=== PATIENT | female | born 1965 | race Caucasian/White ===

== ENCOUNTER 2024-03-09 22:00 | Inpatient (IN) | payer BC ==
[~2024-03-09] VITALS: Ht 160 cm; Wt 91.0 kg
[2024-03-09 15:35] LABS: BASOPHILS # (AUTO) 0.05 K/uL (0.00-0.20); BASOPHILS % (AUTO) 0.6 % (0.0-5.0); EOSINOPHILS # (AUTO) 0.09 K/uL (0.00-0.70); HEMATOCRIT 44.2 % (36-48); IMMATURE GRANULOCYTE ABSOLUTE 0.02 K/uL (0-1); LYMPHOCYTES # (AUTO) 2.7 K/uL (1.0-4.8); LYMPHOCYTES % (AUTO) 31.1 % (21.0-51.0); MEAN CORPUSCULAR HEMOGLOBIN 31.3 pg (27.0-33.0); MEAN CORPUSCULAR HGB CONC 31.2 g/dL (32.0-36.0); MEAN CORPUSCULAR VOLUME 100.2 fL (79-99); MONOCYTES # (AUTO) 0.6 K/uL (0.1-1.0); MONOCYTES % (AUTO) 6.6 % (3.0-13.0); NEUTROPHILS # (AUTO) 5.3 K/uL (1.8-7.7); NEUTROPHILS % (AUTO) 60.5 % (40.0-77.0); PLATELET COUNT (AUTO) 213 K/uL (130-400); RED BLOOD CELL COUNT(AUTO) 4.41 MIL/uL (4.00-5.50); RED CELL DISTRIBUTION WIDTH 13.9 % (11.0-15.5); WHITE BLOOD COUNT (AUTO) 8.8 K/uL (4.8-10.8)
[2024-03-09 15:50] LABS: INR <= 0.93 (0.85-1.15)
[2024-03-09 15:51] LABS: PARTIAL THROMBOPLASTIN TIME 25.9 SEC (26.3-35.5)
[2024-03-09 15:56] LABS: ALBUMIN 3.4 g/dL (3.5-5.0); BILIRUBIN,TOTAL 0.2 mg/dL (0.2-1.0); CREATININE 1.2 mg/dL (0.5-1.0); POTASSIUM 3.5 mmol/L (3.5-5.1); TOTAL PROTEIN, SERUM 7.8 g/dL (6.0-8.3)
[2024-03-09 16:38] VITALS: BP 144/78; PULSE 95; RESP 18; TEMP 97.3
[~2024-03-09 22:00] MED LIST: ALPR1TAB7 PO; DICY20TA3 PO; DULO60CA64 PO; ESTROGEN TP; FOLIC ACID PO; HYOS-14 PO; OMEP40CA21 PO; PROGESTERONE PO; PROM25TA7 PO; TOPI-97 PO
[2024-03-13] VITALS (24 sets, daily range): BP systolic 123–153; BP diastolic 65–84; PULSE 78–101; RESP 15–18; TEMP 97.5–98.1
[2024-03-13] MEDS: LACTATED RINGERS 1000ML 1,000 ML IV ONE (07:11)
[2024-03-13] MEDS ORDERED: proPOFol 10 MG/ML 20ML VIAL IV ONE (07:24)
[2024-03-13] MEDS ORDERED: rocuRONium bROMide 10MG/1ML 5ML VL ONE ×3 (07:24→14:35)
[2024-03-13] MEDS ORDERED: MIDAZOLAM HCL 1 MG/ML 2ML VIAL ONE (07:24)
[2024-03-13] MEDS ORDERED: ondanSETRON 4MG INJ ONE (07:24)
[2024-03-13] MEDS ORDERED: FENTanyl CITRate PF 50 MCG/1 ML 2ML VIAL ONE ×3 (07:24→11:26)
[2024-03-13] MEDS ORDERED: LIDOCAINE PF 100MG/5ML (2%) SYRINGE 5ML ONE (07:27)
[2024-03-13] MEDS ORDERED: phenylEPHRINE HCL 10 MG/ML 1ML VIAL IV ONE (07:30)
[2024-03-13] MEDS: acetaMINOPHEN 100 ML ONE (07:37)
[2024-03-13] MEDS: INDOCYANINE GREEN 25 MG VIAL IJ ONE (07:48)
[2024-03-13] MEDS: MEROPENEM 1 GM VIAL ONE (08:40)
[2024-03-13] MEDS: LIDOCAINE HCL 1% 10 ML VIAL ONE (08:52)
[2024-03-13] MEDS: BUPIvacaine/PF 0.5% 30ML VIAL ONE (08:52)
[2024-03-13] MEDS: EPINEPHrine PF 1MG (1:1,000) 1 MG/ML AMP ONE (08:52)
[2024-03-13] MEDS: LIDOCAINE HCL 1% 20 ML VIAL ONE (08:52)
[2024-03-13] MEDS ORDERED: MEPERIDINE-PF 25 MG/ML SYG ONE (13:42)
[2024-03-13] MEDS: SUGAMMADEX SODIUM 200 MG/2 ML VIAL IV ONE (14:43)
[2024-03-13] MEDS: FENTanyl CITRate PF 50 MCG/1 ML 2ML VIAL ONE (15:51)
[2024-03-13] MEDS: MEPERIDINE-PF 25 MG/ML SYG ONE (16:09)
[2024-03-13] MEDS: acetaMINOPHEN 325 MG TAB PO SCH (16:30)
[2024-03-13] MEDS: LACTATED RINGERS 1000ML 1,000 ML IV SCH (16:30)
[2024-03-13] MEDS ORDERED: HYDROcodone/APAP 5/325 1 TAB TABLET PO ONE (19:00)
[2024-03-13] MEDS ORDERED: ketOROlac 30MG VIAL (30MG/ML) IVP ONE (19:00)
[2024-03-13] MEDS: hydroMORPHone 0.5 MG SYG (0.5MG/0.5ML) IVP ONE (19:16)
[2024-03-13] MEDS ORDERED: PoTASSium chloRIDE 20MEQ/100ML 100 ML IV PRN (20:30)
[2024-03-13] MEDS ORDERED: MAGNESIUM 2GM PREMIX 50ML 50 ML IV PRN (20:30)
[2024-03-13] MEDS ORDERED: PoTASSium chl 10% ELIXIR 20MEQ 20 MEQ/15 ML UDCUP PO PRN (20:30)
[2024-03-13] MEDS: FAMOTIDINE 20MG VIAL IV SCH (20:34)
[2024-03-13] MEDS: GABAPENTIN 300 MG CAPSULE PO SCH (20:35)
[2024-03-13] MEDS: MEPERIDINE-PF 25 MG/ML SYG IVP PRN (22:27)
[2024-03-14] MEDS: hydroMORPHone 0.5 MG SYG (0.5MG/0.5ML) IVP ONE (01:46)
[2024-03-14 04:00] VITALS: BP 128/65; PULSE 97; RESP 20; TEMP 97.9
[2024-03-14 04:38] LABS: BASOPHILS # (AUTO) 0.04 K/uL (0.00-0.20); BASOPHILS % (AUTO) 0.3 % (0.0-5.0); EOSINOPHILS # (AUTO) 0.01 K/uL (0.00-0.70); EOSINOPHILS % (AUTO) 0.1 % (0.0-8.0); HEMATOCRIT 40.7 % (36-48); IMMATURE GRANULOCYTE ABSOLUTE 0.04 K/uL (0-1); LYMPHOCYTES # (AUTO) 2.5 K/uL (1.0-4.8); LYMPHOCYTES % (AUTO) 16.8 % (21.0-51.0); MEAN CORPUSCULAR HGB CONC 31.9 g/dL (32.0-36.0); MEAN CORPUSCULAR VOLUME 96.9 fL (79-99); MONOCYTES # (AUTO) 1.6 K/uL (0.1-1.0); MONOCYTES % (AUTO) 11.1 % (3.0-13.0); NEUTROPHILS # (AUTO) 10.5 K/uL (1.8-7.7); NEUTROPHILS % (AUTO) 71.4 % (40.0-77.0); PLATELET COUNT (AUTO) 242 K/uL (130-400); RED CELL DISTRIBUTION WIDTH 14.2 % (11.0-15.5); WHITE BLOOD COUNT (AUTO) 14.7 K/uL (4.8-10.8)
[2024-03-14 04:48] LABS: HEMOGLOBIN A1C 5.1 % (4.0-6.0)
[2024-03-14 05:19] LABS: CREATININE 1.1 mg/dL (0.5-1.0); POTASSIUM 3.6 mmol/L (3.5-5.1); THYROID STIMULATING HORMONE 0.95 uIU/mL (0.36-3.74)
[2024-03-14] MEDS: PoTASSium chloRIDE 20MEQ ER 20 MEQ ERTAB PO PRN (05:32)
[2024-03-14 08:00] VITALS: BP 110/57; PULSE 95; RESP 18; TEMP 98.2; O2SAT 99
[2024-03-14] MEDS: ENOXAPARIN SODIUM 40 MG/0.4 ML SYRINGE SQ SCH (08:46)
[2024-03-14 12:00] VITALS: BP 153/83; PULSE 84; RESP 18; TEMP 97.8
[2024-03-14] MEDS: HYDROcodone/APAP 5/325 1 TAB TABLET PO PRN (14:01)
[2024-03-14 16:00] VITALS: BP 122/68; PULSE 97; RESP 18; TEMP 99.3
[2024-03-14 19:25] VITALS: BP 151/80; PULSE 87; RESP 20; TEMP 98.7; O2SAT 97
[2024-03-14] MEDS: hydroMORPHone 0.5 MG SYG (0.5MG/0.5ML) IVP PRN (19:46)
[2024-03-14 23:08] VITALS: RESP 20
[2024-03-15] VITALS (9 sets, daily range): BP systolic 120–140; BP diastolic 57–85; PULSE 75–99; RESP 16–21; TEMP 97.8–98.4; O2SAT 94–98
[2024-03-15 04:18] LABS: BASOPHILS # (AUTO) 0.03 K/uL (0.00-0.20); BASOPHILS % (AUTO) 0.4 % (0.0-5.0); EOSINOPHILS # (AUTO) 0.12 K/uL (0.00-0.70); EOSINOPHILS % (AUTO) 1.4 % (0.0-8.0); HEMATOCRIT 38.6 % (36-48); IMMATURE GRANULOCYTE ABSOLUTE 0.04 K/uL (0-1); LYMPHOCYTES # (AUTO) 1.9 K/uL (1.0-4.8); LYMPHOCYTES % (AUTO) 21.6 % (21.0-51.0); MEAN CORPUSCULAR HEMOGLOBIN 31.5 pg (27.0-33.0); MEAN CORPUSCULAR HGB CONC 31.6 g/dL (32.0-36.0); MEAN CORPUSCULAR VOLUME 99.7 fL (79-99); MONOCYTES # (AUTO) 0.9 K/uL (0.1-1.0); NEUTROPHILS # (AUTO) 5.6 K/uL (1.8-7.7); NEUTROPHILS % (AUTO) 65.1 % (40.0-77.0); PLATELET COUNT (AUTO) 192 K/uL (130-400); RED BLOOD CELL COUNT(AUTO) 3.87 MIL/uL (4.00-5.50); RED CELL DISTRIBUTION WIDTH 14.5 % (11.0-15.5); WHITE BLOOD COUNT (AUTO) 8.6 K/uL (4.8-10.8)
[2024-03-15 04:23] LABS: CREATININE 1.1 mg/dL (0.5-1.0); POTASSIUM 3.5 mmol/L (3.5-5.1)
[2024-03-15] MEDS ORDERED: LACTATED RINGERS 1000ML IV SCH (08:30)
[2024-03-15] MEDS: ondanSETRON 4MG INJ IVP PRN (10:59)
[2024-03-15] MEDS: DICYCLOMINE HCL 20 MG TAB PO PRN (20:21)
[2024-03-16] VITALS (7 sets, daily range): BP systolic 119–156; BP diastolic 65–95; PULSE 72–96; RESP 16–20; TEMP 97.8–98.9; O2SAT 94–97
[2024-03-16] MEDS: LACTATED RINGERS 1000ML 1,000 ML IV SCH (01:14)
[2024-03-16 05:28] LABS: BASOPHILS # (AUTO) 0.02 K/uL (0.00-0.20); BASOPHILS % (AUTO) 0.2 % (0.0-5.0); EOSINOPHILS # (AUTO) 0.16 K/uL (0.00-0.70); EOSINOPHILS % (AUTO) 1.9 % (0.0-8.0); IMMATURE GRANULOCYTE ABSOLUTE 0.02 K/uL (0-1); LYMPHOCYTES # (AUTO) 2.5 K/uL (1.0-4.8); LYMPHOCYTES % (AUTO) 30.6 % (21.0-51.0); MEAN CORPUSCULAR HEMOGLOBIN 31.2 pg (27.0-33.0); MEAN CORPUSCULAR HGB CONC 31.4 g/dL (32.0-36.0); MEAN CORPUSCULAR VOLUME 99.2 fL (79-99); MONOCYTES # (AUTO) 0.8 K/uL (0.1-1.0); MONOCYTES % (AUTO) 9.7 % (3.0-13.0); NEUTROPHILS # (AUTO) 4.7 K/uL (1.8-7.7); NEUTROPHILS % (AUTO) 57.4 % (40.0-77.0); PLATELET COUNT (AUTO) 191 K/uL (130-400); RED BLOOD CELL COUNT(AUTO) 3.53 MIL/uL (4.00-5.50); RED CELL DISTRIBUTION WIDTH 14.3 % (11.0-15.5); WHITE BLOOD COUNT (AUTO) 8.2 K/uL (4.8-10.8)
[2024-03-16 05:37] LABS: CREATININE 0.9 mg/dL (0.5-1.0); POTASSIUM 3.7 mmol/L (3.5-5.1)
[2024-03-16] MEDS: metoCLOPRAmide 10 MG/2 ML VIAL IVP ONE (16:23)
[2024-03-17] VITALS (8 sets, daily range): BP systolic 136–157; BP diastolic 69–90; PULSE 64–84; RESP 18–20; TEMP 98.3–99; O2SAT 97–98
[2024-03-17 06:15] LABS: BASOPHILS # (AUTO) 0.03 K/uL (0.00-0.20); BASOPHILS % (AUTO) 0.5 % (0.0-5.0); EOSINOPHILS # (AUTO) 0.16 K/uL (0.00-0.70); EOSINOPHILS % (AUTO) 2.5 % (0.0-8.0); HEMATOCRIT 35.8 % (36-48); IMMATURE GRANULOCYTE ABSOLUTE 0.02 K/uL (0-1); LYMPHOCYTES # (AUTO) 2.1 K/uL (1.0-4.8); MEAN CORPUSCULAR HGB CONC 31.6 g/dL (32.0-36.0); MEAN CORPUSCULAR VOLUME 98.4 fL (79-99); MONOCYTES # (AUTO) 0.6 K/uL (0.1-1.0); MONOCYTES % (AUTO) 9.4 % (3.0-13.0); NEUTROPHILS # (AUTO) 3.6 K/uL (1.8-7.7); NEUTROPHILS % (AUTO) 55.3 % (40.0-77.0); PLATELET COUNT (AUTO) 189 K/uL (130-400); RED BLOOD CELL COUNT(AUTO) 3.64 MIL/uL (4.00-5.50); WHITE BLOOD COUNT (AUTO) 6.5 K/uL (4.8-10.8)
[2024-03-17 06:28] LABS: POTASSIUM 3.5 mmol/L (3.5-5.1)
[2024-03-17] MEDS ORDERED: metoCLOPRAmide 10 MG/2 ML VIAL IVP SCH (16:00)
[2024-03-17] MEDS: metoCLOPRAmide 10 MG/2 ML VIAL IVP SCH (16:10)
[2024-03-17] MEDS ORDERED: ASPI-1197 PO (16:55)
[2024-03-18] VITALS: BP 137/93; PULSE 70; RESP 18; TEMP 99.1
[2024-03-18 04:00] VITALS: BP 155/86; PULSE 73; RESP 18; TEMP 98.5
[2024-03-18 08:00] VITALS: O2SAT 97
[2024-03-18 08:11] VITALS: BP 149/80; PULSE 88; RESP 19; TEMP 99.4
[2024-03-18 12:12] VITALS: BP 170/92; PULSE 69; RESP 19; TEMP 98.2
[2024-03-18] MEDS: metoCLOPRAmide 5 MG TABLET PO ONE (14:02)
[2024-03-18] MEDS: ondanSETRON ODT 4MG TAB SL ONE (14:02)
[2024-03-18] MEDS: dexaMETHasone 4 MG TAB PO ONE (14:03)
[2024-03-18 16:00] VITALS: BP 163/87; PULSE 103; RESP 19; TEMP 97.3
== END 2024-03-18 16:45 | disposition home or self-care (01) | DRG 331 ==
LOC: DAHIP 03-13 06:16 → 4AH 03-13 16:42
PROVIDERS: ADMIT Surgery; ATTEND Surgery
PROC: 0DNW3ZZ Release Peritoneum, Percutaneous Approach (ICD-10-PCS; 2024-03-13)
PROC: 8E0W3CZ Robotic Assisted Procedure of Trunk Region, Percutaneous Approach (ICD-10-PCS; 2024-03-13)
PROC: 0DBB0ZZ Excision of Ileum, Open Approach (ICD-10-PCS; principal; 2024-03-13 08:15)
DX: K50.012 Crohn's disease of small intestine with intestinal obstruction (principal); K66.0 Peritoneal adhesions (postprocedural) (postinfection); F41.9 Anxiety disorder, unspecified; Z87.442 Personal history of urinary calculi; Z53.31 Laparoscopic surgical procedure converted to open procedure; Z79.899 Other long term (current) drug therapy; Z82.3 Family history of stroke; Z82.5 Family history of asthma and other chronic lower respiratory diseases; Z83.3 Family history of diabetes mellitus; Z82.0 Family history of epilepsy and other diseases of the nervous system
CPT/HCPCS: 36415; 74018; 80048; 80053; 81025; 83036; 84443; 84703; 85025; 85610; 85730; 86850; 86900; 86901; 93005; G0378; J0171; J1171; J1650; J2003; J2175; J2185; J2250; J2371; J2405; J2704; J2765; J3010; J3490; J7120; J8540; A4215; A4216; A4221; A4222; A4223; A4600; A4663; A6260; J0665